=== PATIENT | male | born 1980 | race Caucasian/White ===

== ENCOUNTER 2019-02-28 20:13 | Inpatient (IN) | payer OTHER ==
[~2019-02-28] VITALS: Ht 180.3 cm; Wt 10.0 kg
[2019-02-28 20:19] VITALS: BP 146/85
--- NOTE | 2019-02-28 20:25 | NUR ---
2003 I SPOKE WITH YUNIER FROM [facility] WHO STATES SHE DID SPEAK WITH THE GENTLEMAN AND STATES HE CAN BE CLEARED AND BE ADMITTED. LEVAR PEREZ RN.
--- NOTE | 2019-02-28 20:37 | NUR ---
SPOKE WITH YUNIER FROM [facility] WHO STATES IT IS FINE TO USE BLOOD WORK FROM [facility] ER FOR ADMISSION. MADE AWARE. LEVAR PEREZ RN
[2019-02-28 21:30] VITALS: BP 142/83
[2019-02-28 21:33] LABS: BASO % 0.5 % (0.0-1.0); EOS # 0.1 10*3/uL (0.0-0.4); EOS % 0.6 % (1.0-4.0); HEMATOCRIT 45.7 % (42.0-52.0); HEMOGLOBIN 15.7 g/dl (14.0-18.0); LYMPH # 2.6 10*3/uL (1.3-4.4); LYMPH % 31.7 % (27.0-41.0); MEAN CELL VOLUME 92.3 fl (80.0-94.0); MEAN CORPUSCULAR HGB 31.7 pg (27.0-31.0); MEAN CORPUSCULAR HGB CONC 34.4 g/dl (33.0-37.0); MEAN PLATELET VOLUME 9.5 fl (9.6-12.3); MONO # 0.6 10*3/uL (0.1-1.0); MONO % 7.8 % (3.0-9.0); NEUT # 4.9 10*3/uL (2.3-7.9); NEUT % 59.3 % (47.0-73.0); PLATELET COUNT AUTOMATED 237 10*3/uL (130-400); RED BLOOD COUNT 4.95 10*6/uL (4.50-5.90); RED CELL DISTRI WIDTH 12.6 % (0-14.5); WHITE BLOOD COUNT 8.2 10*3/uL (4.8-10.8)
[2019-02-28 21:38] VITALS: BP 152/90
--- NOTE | 2019-02-28 21:38 | NUR ---
A 38, admitted to , under the services of HAROON Sidhu DO with a diagnosis of ALCOHOL DETOX CENTER. Chief complaint is BASIC NEEDS. Patient arrived via wheel chair from ER. Monitor applied. Initial assessment completed. Vital signs taken and recorded. HAROON SIDHU DO notified of admission to the unit. Orders received. See assessment for past medical history, medications and allergies. Patient and/or family oriented to unit. [facility] visitation policy reviewed. Clothing/patient valuable form completed. MICHELLE DOW
[2019-02-28 21:44] LABS: INTERNATIONAL NORM RATIO 0.9 (2.0-3.5)
[2019-02-28 22:02] LABS: ALBUMIN 3.6 gm/dl (3.1-4.5); ALKALINE PHOSPHATASE 71 U/L (45-117); BUN 10 mg/dl (7-24); CHLORIDE 105 mmol/L (98-107); CREATININE 0.85 mg/dL (0.70-1.30); SGOT/AST 19 IU/L (3-35); SGPT/ALT 43 U/L (12-78); SODIUM 141 mmol/L (136-145); TOTAL PROTEIN 6.9 gm/dL (6.4-8.2)
[2019-02-28] MEDS ORDERED: PANTOPRAZOLE SO40 MG PO (22:24)
--- NOTE | 2019-02-28 23:28 | NUR ---
24 HR chart check completed.
[2019-02-28 23:38] LABS: BILIRUBIN NEGATIVE (NEGATIVE); BLOOD NEGATIVE (NEGATIVE); CLARITY CLEAR (CLEAR); COLOR YELLOW (YELLOW); GLUCOSE NEGATIVE (NEGATIVE); KETONE NEGATIVE (NEGATIVE); LEUKO ESTERASE NEGATIVE (NEGATIVE); NITRITE NEGATIVE (NEGATIVE)
[2019-02-28 23:47] LABS: URINE AMPHETAMINES < 1000 (1000ng/ml); URINE BARBITURATES < 200 (200ng/ml); URINE BENZODIAZEPINES < 200 (200ng/ml); URINE CANNABINOIDS (THC) < 50 (50ng/ml); URINE COCAINE < 300 (300ng/ml); URINE METHADONE < 300 (300ng/ml); URINE OPIATES < 300 (300ng/ml)
[2019-02-28 23:48] LABS: BACTERIA TRACE; EPITHELIAL CELLS 0-2; MUCOUS TRACE; RBC 0-2 rbc/hpf (0-2)
[2019-02-28 23:51] LABS: URINE PHENCYCLIDINE < 25 (25ng/ml)
[2019-03-01] VITALS: BP 128/70
--- NOTE | 2019-03-01 01:46 | NUR ---
PATIENT COMPLAINS OF INSOMNIA. MEDICATED WITH TRAZODONE ORDERED AND PER PATIENT REQUEST.
--- NOTE | 2019-03-01 02:46 | NUR ---
PATIENT ASLEEP. TRAZODONE EFFECTIVE.
--- NOTE | 2019-03-01 05:04 | NUR ---
Scheduled librium given.
--- NOTE | 2019-03-01 05:54 | NUR ---
CPM APPLIED AT 60 DEGREES.
--- NOTE | 2019-03-01 06:00 | NUR ---
No signs of DT's librium effective.
--- NOTE | 2019-03-01 08:23 | NUR ---
PATIENT MEETS [facility]. [facility] STAFF WILL FOLLOW UP WITH PATIENT TO WORK ON HIS AFTERCARE PLAN. YUNIER HERRERA B.A. INTAKE COORDIANTOR
--- NOTE | 2019-03-01 11:33 | NUR ---
MOTRIN GIVEN PRN ORDERED FOR COMPLAINT OF 8/10 HEADACHE. WILL CONTINUE TO MONITOR AND REASSESS.
--- NOTE | 2019-03-01 11:36 | NUR ---
DR. MCFADDEN APPROVED REMOVAL OF PT HEART MONITOR IN ORDER TO SHOWER. WILL PUT IT BACK ON ONCE PATIENT IS FINISHED.
[2019-03-01 12:00] VITALS: BP 145/88
--- NOTE | 2019-03-01 12:37 | NUR ---
[facility] STAFF SPOKE WITH PATIENT. PATIENT IS WANTING TO FOLLOW UP WITH [facility] IN [place] FOR OUTPATIENT TREATMENT. PATIENT IS WANTING THE VIVITROL SHOT. YUNIER HERRERA B.A. SUPERVISOR SLEEPING BAG DEPARTMENT
--- NOTE | 2019-03-01 12:45 | NUR ---
PER PT, MOTRIN EFFECTIVE FOR HEADACHE.
[2019-03-01 15:58] VITALS: BP 138/76
[2019-03-01 20:00] VITALS: BP 117/70
[2019-03-02] VITALS: BP 132/82
--- NOTE | 2019-03-02 00:43 | NUR ---
0000 SCHEDULED LIBRIUM GIVEN PER ORDER. HEP LOCK INTACT. NO DISTRESS NOTED. NO C/O'S VOICED.
--- NOTE | 2019-03-02 04:16 | NUR ---
RESTING IN BED WITH EYES CLOSED. APPEARS TO BE SLEEPING.
--- NOTE | 2019-03-02 06:13 | NUR ---
SLEPT WELL THIS SHIFT. REMAINS WITHOUT C/O'S, CONDITION GUARDED.
[2019-03-02 08:00] VITALS: BP 121/74
--- NOTE | 2019-03-02 08:00 | NUR ---
PT RESTING. PT DENIES C/O S/S OF DT'S. PO LIBRIUM GIVEN PER ROUTINE ORDER.
[2019-03-02 12:00] VITALS: BP 119/76
[2019-03-02 16:00] VITALS: BP 116/64
[2019-03-02 20:00] VITALS: BP 109/60
--- NOTE | 2019-03-02 20:00 | NUR ---
SITTING UP IN BED. NO SIGNS OF ACUTE DISTRESS NOTED. NO C/O AT THIS TIME. CALL LIGHT IN REACH. SEE SHIFT ASSESSMENT.
--- NOTE | 2019-03-02 22:30 | NUR ---
PT RESTING IN BED. NO C/O AT THIS TIME. CALL LIGHT IN REACH.
[2019-03-03] VITALS: BP 116/70
--- NOTE | 2019-03-03 00:10 | NUR ---
PT RESTING IN BED. TOLERATED ROUTINE MED WITH NO PROBLEM. NO C/O AT THIS TIME. CALL LIGHT IN REACH. SEE SHIFT ASSESSMENT.
--- NOTE | 2019-03-03 03:25 | NUR ---
24 HR chart check completed.
--- NOTE | 2019-03-03 04:00 | NUR ---
SLEEPING IN BED. RESP-EASY AND REGULAR. CALL LIGHT IN REACH.
--- NOTE | 2019-03-03 06:00 | NUR ---
TOLERATED ROUTINE MED WITH NO PROBLEM. NO C/O AT THIS TIME. CALL LIGHT IN REACH.
[2019-03-03 06:59] LABS: BASO % 0.3 % (0.0-1.0); EOS # 0.1 10*3/uL (0.0-0.4); EOS % 2.1 % (1.0-4.0); HEMATOCRIT 46.1 % (42.0-52.0); HEMOGLOBIN 15.1 g/dl (14.0-18.0); LYMPH # 2.1 10*3/uL (1.3-4.4); LYMPH % 34.3 % (27.0-41.0); MEAN CELL VOLUME 96.6 fl (80.0-94.0); MEAN CORPUSCULAR HGB 31.7 pg (27.0-31.0); MEAN CORPUSCULAR HGB CONC 32.8 g/dl (33.0-37.0); MEAN PLATELET VOLUME 9.9 fl (9.6-12.3); MONO # 0.5 10*3/uL (0.1-1.0); MONO % 8.9 % (3.0-9.0); NEUT # 3.3 10*3/uL (2.3-7.9); NEUT % 54.2 % (47.0-73.0); PLATELET COUNT AUTOMATED 196 10*3/uL (130-400); RED BLOOD COUNT 4.77 10*6/uL (4.50-5.90); RED CELL DISTRI WIDTH 12.2 % (0-14.5); WHITE BLOOD COUNT 6.1 10*3/uL (4.8-10.8)
[2019-03-03 07:19] LABS: CREATININE 0.97 mg/dL (0.70-1.30)
[2019-03-03 12:00] VITALS: BP 119/83
--- NOTE | 2019-03-03 15:36 | NUR ---
PT DISCHARGED AT THIS TIME. IV REMOVED AND PRESSURE DRESSING APPLIED. HEART MONITOR RETURNED TO FLOOR. VERBALIZED UNDERSTANDING OF DISCHARGE INSTRUCTIONS.
== END 2019-03-03 15:36 | disposition home or self-care (01) | DRG 897 ==
LOC: ED 20:13 → EDHOLD 21:06 → 4E 21:06 → EDHOLD 21:17 → 4E 21:27
PROVIDERS: Internal Medicine; ADMIT Internal Medicine
DX: F10.239 Alcohol dependence with withdrawal, unspecified (principal); F10.229 Alcohol dependence with intoxication, unspecified; K21.9 Gastro-esophageal reflux disease without esophagitis; K76.0 Fatty (change of) liver, not elsewhere classified; Z87.11 Personal history of peptic ulcer disease; Z80.6 Family history of leukemia; Z81.1 Family history of alcohol abuse and dependence; Z84.89 Family history of other specified conditions; Z88.8 Allergy status to other drugs, medicaments and biological substances

== ENCOUNTER 2021-07-21 09:18 | Inpatient (IN) | payer OTHER ==
[~2021-07-21] VITALS: Ht 177.8 cm; Wt 109.5 kg
[~2021-07-21 09:18] MED LIST: PANTOPRAZOLE SO40 MG PO
[2021-07-21 09:27] VITALS: BP 129/82
[2021-07-21 09:53] LABS: BASO % 0.5 % (0.0-1.0); EOS # 0.3 10*3/uL (0.0-0.4); EOS % 3.3 % (1.0-4.0); HEMATOCRIT 45.8 % (42.0-52.0); LYMPH # 1.9 10*3/uL (1.3-4.4); LYMPH % 25.3 % (27.0-41.0); MEAN CELL VOLUME 90.7 fl (80.0-94.0); MEAN CORPUSCULAR HGB 31.1 pg (27.0-31.0); MEAN CORPUSCULAR HGB CONC 34.3 g/dl (33.0-37.0); MEAN PLATELET VOLUME 9.6 fl (9.6-12.3); MONO # 0.6 10*3/uL (0.1-1.0); MONO % 7.4 % (3.0-9.0); NEUT # 4.9 10*3/uL (2.3-7.9); NEUT % 63.4 % (47.0-73.0); PLATELET COUNT AUTOMATED 183 10*3/uL (130-400); RED BLOOD COUNT 5.05 10*6/uL (4.50-5.90); RED CELL DISTRI WIDTH 12.3 % (0-14.5); WHITE BLOOD COUNT 7.7 10*3/uL (4.8-10.8)
[2021-07-21 10:03] LABS: ACT PARTIAL THROMBO TIME 25.4 SECONDS (20.0-32.1)
[2021-07-21 10:08] LABS: ALBUMIN 3.8 gm/dl (3.1-4.5); ALKALINE PHOSPHATASE 53 U/L (45-117); BUN 13 mg/dl (7-24); CHLORIDE 108 mmol/L (98-107); CPK 370 U/L (39-308); CREATININE 1.02 mg/dL (0.70-1.30); POTASSIUM 4.1 mmol/L (3.5-5.1); SGOT/AST 43 IU/L (3-35); SGPT/ALT 63 U/L (12-78); SODIUM 139 mmol/L (136-145); TOTAL PROTEIN 7.5 gm/dL (6.4-8.2)
[2021-07-21 10:13] LABS: ETHYL ALCOHOL < 3.0 mg/dl (<3)
[2021-07-21 11:42] LABS: BILIRUBIN Negative (Negative); BLOOD Negative (Negative); CLARITY Clear (Clear); COLOR Yellow (Yellow); GLUCOSE Negative (Negative); KETONE Negative (Negative); LEUKO ESTERASE Negative (Negative); NITRITE Negative (Negative); SPECIFIC GRAVITY 1.015 (1.001-1.030); UROBILINOGEN 0.2 E.U./dl (0.0-1.0)
[2021-07-21 11:48] LABS: WBC 0-2 wbc/hpf (0-5)
[2021-07-21 11:54] LABS: URINE AMPHETAMINES < 1000 (1000ng/ml); URINE BARBITURATES < 200 (200ng/ml); URINE BENZODIAZEPINES < 200 (200ng/ml); URINE CANNABINOIDS (THC) < 50 (50ng/ml); URINE COCAINE < 300 (300ng/ml); URINE METHADONE < 300 (300ng/ml); URINE OPIATES < 300 (300ng/ml)
[2021-07-21 11:55] LABS: URINE PHENCYCLIDINE < 25 (25ng/ml)
[2021-07-21 13:15] VITALS: BP 118/68
[2021-07-21 16:20] VITALS: BP 122/66
[2021-07-21 18:45] VITALS: BP 105/67
[2021-07-21 20:00] VITALS: BP 147/74
[2021-07-21] MEDS ORDERED: MELATONIN5 M1 PO (22:26)
[2021-07-22] VITALS: BP 120/68
[2021-07-22 08:00] VITALS: BP 106/61
[2021-07-22 12:00] VITALS: BP 123/58
[2021-07-22 16:00] VITALS: BP 135/70
[2021-07-22 20:00] VITALS: BP 122/69
[2021-07-23] VITALS: BP 115/70
[2021-07-23 08:00] VITALS: BP 100/68
[2021-07-23 12:00] VITALS: BP 133/50
[2021-07-23 15:54] VITALS: BP 109/84
== END 2021-07-23 16:00 | disposition home or self-care (01) | DRG 897 ==
LOC: ED 09:18 → 5E 10:44 → EDHOLD 10:44 → 5E 17:59
PROVIDERS: Emergency Medicine; ADMIT Internal Medicine; ATTEND Internal Medicine
DX: F10.239 Alcohol dependence with withdrawal, unspecified (principal); K29.20 Alcoholic gastritis without bleeding; K21.9 Gastro-esophageal reflux disease without esophagitis; R00.1 Bradycardia, unspecified; E87.8 Other disorders of electrolyte and fluid balance, not elsewhere classified; E66.9 Obesity, unspecified; Z88.8 Allergy status to other drugs, medicaments and biological substances; Z79.899 Other long term (current) drug therapy